=== PATIENT | male | born 1970 | race Caucasian/White ===

== ENCOUNTER 2020-10-08 09:10 | Outpatient (CLI) | payer OTHER ==
--- NOTE | 2020-10-08 11:44 | MRI Report ---
PROCEDURE: Shoulder RT W/O INDICATIONS: RT SHOULDER PAIN TECHNIQUE: Noncontrast oblique coronal T2 fast spin echo with fat saturation, oblique sagittal T1 spin echo and T2 fast spin echo with fat saturation, axial T1 spin echo and T2 fast spin echo with fat saturation t hrough the shoulder. COMPARISON: None. FINDINGS: Image quality: Excellent. Rotator cuff: Tendinosis and low to moderate grade articular and bursal surface partial-thickness tea r involving distal supraspinatus at its insertion on humeral head is seen extending to musculotendino us junction. There is suggestion of focal full-thickness perforation involving anterior fibers of dis ulices supraspinatus at its insertion on humeral head with up to 2.1 cm medial retraction of torn tendon fibers to the level of acromium and fluid-filled gap measures 7 mm in AP dimension. Tendinosis and l ow-grade articular surface partial-thickness tear involving distal infraspinatus is seen. Distal subs capularis tendinosis and low to moderate grade partial-thickness tear is also noted. Mild supraspinat us muscle atrophy is seen on sagittal images. Bones and bursae: No bone marrow contusions or fractures. There is mild to moderate acromioclavicula r joint osteoarthritis. The acromion demonstrates conventional anatomy, without an os acromiale. Smal l amount of joint fluid and subacromial subdeltoid bursal fluid is seen. Capsule and soft tissues: In the absence of intra-articular contrast, the labrum and glenohumeral li gaments appear intact. The long head of the biceps tendinosis and low-grade intrasubstance partial t hickness tear is seen. The rotator interval appears normal, without fibrosis. The coracohumeral lig ament is normal in thickness. IMPRESSION: 1. Tendinosis and low to moderate grade articular and bursal surface partial-thickness tear involving distal supraspinatus with focal full-thickness perforation involving anterior fibers of distal supra spinatus at its insertion on humeral head and up to 2.1 cm medial retraction of torn tendon fibers to the level of acromium. Mild supraspinatus muscle atrophy. 2. Tendinosis and low-grade articular surface partial-thickness tear involving distal infraspinatus. Tendinosis and low to moderate grade partial-thickness tear involving superior to mid fibers of dista l subscapularis. 3. [id number] acromioclavicular joint osteoarthritis. 4. No gross focal labral tear in the absence of intra-articular contrast. 5. Tendinosis and low-grade intrasubstance partial thickness tear involving proximal intra-articular portion of long head of biceps. Reviewed by: Keyur Cooper MD on 10/08/2020 10:43 AM [facility] Approved by: Keyur Cooper MD on 10/08/2020 10:43 AM [facility] Station ID: [id number]
== END 2020-10-08 09:11 | disposition home or self-care (01) ==
LOC: DI 09:10
PROVIDERS: ATTEND Student in an Organized Health Care Education/Training Program
DX: M19.011 Primary osteoarthritis, right shoulder (principal); M75.101 Unspecified rotator cuff tear or rupture of right shoulder, not specified as traumatic; S46.111A Strain of muscle, fascia and tendon of long head of biceps, right arm, initial encounter; M75.81 Other shoulder lesions, right shoulder

== ENCOUNTER 2021-02-05 06:30 | Day surgery (SDC) | payer OTHER ==
[~2021-02-05 06:30] MED LIST: CLINDAMYCIN 900 MG/50 ML 50 ML IV ONE; VANCOMYCIN INJ 1 GM, VANCOMYCIN INJ 250 MG in SODIUM CHLORIDE 0.9% 250 ML IV ONE
[2021-02-05] MEDS ORDERED: LACTATED RINGERS 1,000 ML IV ONE ×3 (06:36→13:19)
[2021-02-05] MEDS ORDERED: PROPOFOL 200 MG/20 ML VIAL IVP ONE (07:03)
[2021-02-05] MEDS ORDERED: ROCURONIUM 50 MG/5 ML VIAL ONE (07:03)
[2021-02-05] MEDS ORDERED: LIDOCAINE-MPF 2% 5 ML VIAL ONE (07:03)
[2021-02-05] MEDS ORDERED: MIDAZOLAM 2 MG/2 ML VIAL ONE (07:04)
[2021-02-05] MEDS ORDERED: ROPIVACAINE 0.5% PF 20 ML AMPULE ONE (07:04)
[2021-02-05] MEDS ORDERED: DEXAMETHASONE 4 MG/ML VIAL ONE (07:04)
[2021-02-05] MEDS ORDERED: fentaNYL 100 MCG/2 ML VIAL ONE ×2 (07:04→12:30)
[2021-02-05] MEDS ORDERED: EPINEPHrine 1 MG/ML AMP ONE (07:06)
[2021-02-05] MEDS ORDERED: BUPIVACAINE 0.25% PF 30 ML VIAL ONE (07:06)
[2021-02-05] MEDS ORDERED: SEVOFLURANE 250 ML LIQUID INH ONE ×2 (07:13→12:11)
--- NOTE | 2021-02-05 07:19 | ANESTHESIA ---
Pre-Anesthesia VS, & Labs - Diagnosis R biceps tear - Procedure R shoulder scope with possible SLAP, possible RCR, possib le biceps tenodesis Vital Signs: Temp Pulse Resp BP Pulse Ox 36.1 C L 98 12 141/88 H 97 02/05/21 06:36 02/05/21 06:36 02/05/21 06:36 02/05/21 06:36 02/05/21 06:36 Height: 5 ft 10 in Weight (kg): 83.46 kg Body Mass Index: 26.4 BMI Classification: Overweight - NPO >8 hours - Lab Results Lab results reviewed: Yes Home Medications and Allergies Home Medications: Ambulatory Orders Albuterol Sulfate [Proair Hfa Inhaler] 1 - 2 puffs INH Q4H PRN 02/01/21 Fluticasone/Salmeterol [Advair 250-50 Diskus] 1 each IH DAILY 02/01/21 Loratadine [Claritin] 10 mg PO DAILY 02/01/21 Pantoprazole [Protonix] 40 mg PO DAILY 02/01/21 Rosuvastatin Calcium [Crestor] 5 mg PO DAILY 02/01/21 Sildenafil Citrate [Viagra] 50 mg PO DAILY 02/01/21 Tamsulosin [Flomax] 0.4 mg PO DAILY 02/01/21 Ondansetron Odt [Zofran Odt] 4 mg TL Q6H PRN 02/05/21 Active Medications Vancomycin HCl 1 gm/Vancomycin HCl 250 mg/ Sodium Chloride 250 mls @ 167 mls/hr IV ONCE ONE Stop: 02/05/21 07:59 Last Admin: 02/05/21 07:00 Dose: 0 mls Documented by: Albuterol Sulfate [Proair Hfa Inhaler] 1 - 2 puffs INH Q4H PRN 02/01/21 Fluticasone/Salmeterol [Advair 250-50 Diskus] 1 each IH DAILY 02/01/21 Loratadine [Claritin] 10 mg PO DAILY 02/01/21 Pantoprazole [Protonix] 40 mg PO DAILY 02/01/21 Rosuvastatin Calcium [Crestor] 5 mg PO DAILY 02/01/21 Sildenafil Citrate [Viagra] 50 mg PO DAILY 02/01/21 Tamsulosin [Flomax] 0.4 mg PO DAILY 04/05/21 Ondansetron Odt [Zofran Odt] 4 mg TL Q6H PRN 02/05/21 Allergies/Adverse Reactions: Allergies Allergy/AdvReac Type Severity Reaction Status Date / Time Penicillins Allergy Respiratory Verified 02/01/21 14:18 Sulfa (Sulfonamide Allergy Rash Verified 02/01/21 14:18 Antibiotics) Anes History & Medical History - Anesthetic History Anesthesia Complications: reports: No previous complications Family history of Anesthesia Complications: Denies Family history of Malignant Hyperthermia: Denies - Medical History Cardiovascular: reports: High cholesterol Pulmonary: reports: Asthma, Sleep apnea Gastrointestinal: reports: GERD Urinary: reports: Benign prostate hypertrophy Musculoskeletal: reports: Other Endocrine/Autoimmune: reports: None Skin: reports: None History of Cancer?: No - Surgical History Dermatologic: reports: Debridement (R leg MRSA) Exam General: Alert, Oriented x3, Cooperative Dental: WNL Mouth Openin Fingerbreadth Neck Mobility: Normal Mallampati classification: II Thyromental Distance: 4-6 cm Respiratory: Lungs clear, Normal breath sounds, No respiratory distress Cardiovascular: Regular rate Mental/Cognitive Status: Alert/Oriented X3, Normal for patient Cognitive Status: Within normal limits Plan Anesthesia Type: General, Interscalene Block Consent for Procedure(s) Verified and Reviewed: Yes Code Status: Attempt Resuscitation ASA classification: 2-Mild systemic disease Is this case an emergency?: No
[2021-02-05] MEDS ORDERED: ATROPINE ABBOJECT 1 MG/10 ML SYRINGE IVP PRN (07:57)
[2021-02-05] MEDS ORDERED: MORPHINE 2 MG/ML CARPUJECT IVP PRN (07:57)
[2021-02-05] MEDS ORDERED: NALOXONE 0.4 MG/ML VIAL IVP PRN (07:57)
[2021-02-05] MEDS ORDERED: ONDANSETRON 4 MG/2 ML VIAL IVP PRN ×2 (07:57→13:21)
[2021-02-05] MEDS ORDERED: fentaNYL 100 MCG/2 ML VIAL IVP PRN (07:57)
[2021-02-05] MEDS ORDERED: ePHEDrine 50 MG/ML VIAL IVP PRN (07:57)
[2021-02-05] MEDS ORDERED: METOCLOPRAMIDE 10 MG/2 ML VIAL IVP PRN (07:57)
[2021-02-05] MEDS ORDERED: HYDROmorphone 0.5 MG/0.5 ML SYRINGE IVP PRN (07:57)
[2021-02-05] MEDS ORDERED: LACTATED RINGERS 1,000 ML IV SCH (08:00)
[2021-02-05] MEDS ORDERED: EPINEPHrine 1 MG/ML AMP IR ONE ×2 (08:29)
[2021-02-05] MEDS ORDERED: BUPIVACAINE 0.25% PF 30 ML VIAL SUBQ ONE ×2 (08:30→10:00)
[2021-02-05] MEDS ORDERED: ONDANSETRON 4 MG/2 ML VIAL ONE ×2 (10:33→14:22)
[2021-02-05] MEDS ORDERED: KETOROLAC 30 MG/ML VIAL ONE ×2 (10:33→11:27)
[2021-02-05] MEDS ORDERED: oxyCODONE 5 MG TABLET PO PRN (13:21)
--- NOTE | 2021-02-05 13:26 | OPERATIVE REPORT ---
Operative Report - General Planned Procedure: Right shoulder arthroscopy, rotator cuff debridement versus repair, open subpectoral biceps tenodesis Pre-Op Diagnosis: Right proximal long head biceps tendon rupture, rotator cuff tear Procedure Performed: Right shoulder arthroscopy, intra-articular debridement, subacromial decompression, rotator cuff repair, open biceps tenodesis Post Op Diagnosis: Right proximal long head biceps tendon rupture, anterior supraspinatus tear - Procedure Note Primary Surgeon: JAYLAN ANNE Anesthesia Technique: General ET tube, Regional block Estimated Blood Loss (mL): 50 - Other Other Information/Narrative: Primary Surgeon: JAYLAN ANNE Secondary Surgeon: Viktor Anesthesia: General endotracheal anesthesia EBL: 50 ml IMPLANTS: Arthrex 4.75 mm swivel lock x4 in speed bridge construct Arthrex 1.9 mm fiber tack POSTOPERATIVE PLAN: 0-2 weeks-Sling at all times. Pendulum exercises 5 times per day. 2-6 weeks-Passive range of motion with the following limits: FF to 120, ER to 40, abduction to 90. No active biceps engagement until 4 weeks. Then weight of arm only for ADLs. 6-12 weeks-Active range of motion in all planes without limitation. Isometric rotator cuff strengthening is allowed. 12-16 weeks-Gradually increase strengthening 16 weeks and beyond-Introduce dynamic activities EXAMINATION UNDER ANESTHESIA: ROM: Forward flexion 180 degrees, abduction 170 degrees, ABER 90 degrees, ABIR 85 degrees Anterior load and shift: Normal Posterior load and shift: Normal ARTHROSCOPIC FINDINGS: Rotator interval: Diffuse fraying. Frayed stump of biceps tendon sitting the rotator interval Biceps tendon & SLAP: Ruptured. With some fraying of the superior labrum Subscapularis: Superficial fraying, with some longitudinal fissuring, however the insertion appeared intact Rotator Cuff: Full-thickness anterior supraspinatus tear, with retraction. Labrum: Anterior, anterior inferior, posterior inferior fraying Glenoid Cartilage: Diffuse inferior fraying crabmeat changes Humeral Head Cartilage: Overall normal, with some eburnation superiorly near the rotator cuff tear INDICATIONFOR SURGERY: 50-year-old [id number] male sustained a spontaneous rupture of the proximal long head biceps tendon, while on detachment in [place], [place]. He desired operative intervention, with tenodesis to improve appearance and possibly function. We had previously discussed performing shoulder arthroscopy for a likely rotator cuff tear. We discussed proceeding with right shoulder arthroscopy, with rotator cuff debridement versus repair based on arthroscopic findings, as well as open biceps tenodesis. We discussed that because the tendon spontaneously ruptured more than a week ago, the dissection may be more extensive in order to locate the tendon appropriately. He expressed understanding. Risks, benefits, and alternatives were discussed. Risks included pain, bleeding, infection, damage to nearby structures, lack of symptom relief, implant complications, stiffness, need for further surgeries, DVT, PE, stroke, and even . He signed a written consent form. PROCEDURE IN DETAIL: The patient was met in the preoperative holding on the day of the procedure. Operative extremity was signed. Consent was verified. He desired to proceed. Regional anesthesia was obtained in the preoperative area. They were brought to the operating room and surrendered to anesthesia. Once general anesthesia was obtained they were placed in the lateral decubitus position with the operative side up. An axillary roll was placed and all bony prominences were well-padded. They were then prepped and draped in the standard sterile fashion. A surgical timeout was held to confirm the patient procedure, identity, procedure, laterality, allergies, images, and antibiotics. All were in agreement we proceeded. Balanced suspension was applied and a standard diagnostic arthroscopy was performed utilizing posterior and anterior superior portal sites. The anterior superior portal site was created under direct visualization. The findings of the diagnostic arthroscopy can be found above. The remnant biceps tendon was debrided back to the labral rim, using a combination of the arthroscopic sucker shaver and radiofrequency ablation wand. We next turned our attention to the full-thickness rotator cuff tear, an anterolateral portal was made under direct visualization, and the sucker shaver was brought in through the subacromial space, through the tear and used to debride the soft tissues off of the humeral head at the chondral margin. The instruments and cannula were then removed from the glenohumeral joint. The scope trocar was placed in the posterior portal and the acromion was felt. It was then inserted just under the acromion scraping along the bone until the CA ligament was felt. The scope trocar was then brought just lateral to the CA ligament and out the anterior incision. The cannula was then brought over the scope trocar arthroscope were inserted. The arthroscope was backed up until the shaver and arthroscope in the subacromial space. I then systemically debrided the bursa using a sucker shaver and radiofrequency ablation wand. Care was taken to keep the deltoid fascia intact. The tear in the leading edge of the supraspinatus was readily apparent. Degenerative cuff tissue was debrided using arthroscopic sucker shaver, and any remnant soft tissue was removed from the humeral head using the sucker shaver and arthroscopic rasp. A cuff grasper was used to reduce the tissue, and then the medial row of the speed bridge anchors were placed percutaneously through a stab incision following needle localizati on. The medial row of sutures was passed using the scorpion, and the anterior sutures brought out the anterior cannula posterior sutures brought out the posterior cannula. FiberWire scissors were used to separate the strands from each of the anchors, and then 1 blue and 1 white strand was brought anteriorly and posteriorly to the lateral row anchors. Lateral anchors were localized and placed in standard fashion using the punch, with good reduction of the cuff to the humeral head. Final pictures were taken. The cannulas and instruments were removed from the shoulder. We then turned our attention to the biceps tenodesis, a 8 cm incision was made lateral to the axillary fold centered over the pectoralis major tendon. Electrocautery was used to obtain hemostasis. The fascia was opened with dissection scissors. Blunt digital dissection was used to identify the intertubercular groove just under the pectoralis major tendon. The long head of the biceps tendon was not palpable in this location. Therefore the incision was extended approximately 2 more centimeters inferiorly, and Metzenbaum scissors were used to dissect through the fascia on the lateral edge of the short head muscle belly. There was some scar tissue appreciated, and this interval was explored, ultimately revealing the curled up and retracted tendon of the long head. This was then gently freed up from the surrounding tissue, any scar tissue was sharply debrided. The free edge of the tendon was clamped with a right angle, and we turned our attention to anchor placement. An [facility] retractor was placed underneath the edge of the pec tendon, exposing the intertubercular groove. The groove was systematically debrided of soft tissue using combination of electrocautery and a persaud elevator. Once this is been accomplished. The drill guide for the fiber tack was placed high in the groove, and a fiber tack suture anchor was placed in standard fashion. Traction on the suture indicated good fixation, with free sliding of the suture strands. One of the strands was used to whipstitch the biceps tendon from approximately 2 cm proximal to the musculotendinous junction down to the musculotendinous junct ion and then back again, and then the other limb was brought from deep to superficial through the biceps tendon at the 2 cm césar, to serve as a post. Excess tendon was sharply debrided. Under direct visualization, the post was tensioned, with good reduction of the tendon. While maintaining tension on the post, a series of reversing half hitches on alternating posts were used to secure the tendon to the anterior humerus. The elbow was taken through gentle range of motion, while palpating the tension on the tendon. The arm was able to get straight with appropriate tension on the tendon. The wound was then irrigated. We began our closure using 0 Vicryl to close the fascia, followed by 2-0 Vicryl for the subcutaneous tissues and followed by a running 3-0 Monocryl in subcuticular fashion for the skin. Sutures were held with Steri-Strips, and the incision was sealed with Dermabond. Once the Dermabond dried, Steri-Strips were placed over it to reinforce the repair. The portal sites were then closed with 3-0 Monocryl buried. Mastisol and Steri- Strips were applied. 10 mL of quarter percent Marcaine was injected around the biceps tenodesis incision. Xeroform was applied followed by a sterile dressing and a sling. He was awakened and transferred to the recovery room.
--- NOTE | 2021-02-05 13:29 | IMMEDIATE POSTOPERATIVE NOTE ---
Immediate Postoperative Note - Procedure Note Procedure Date: 02/05/21 Pre-Op Diagnosis: Right long head biceps tendon rupture, rotator cuff tear Procedure: Right shoulder arthroscopy, rotator cuff repair, subacromial decompression, biceps tenodesis Post-Op Diagnosis: Right long head biceps tendon rupture, supraspinatus tear Primary Surgeon: JAYLAN ANNE Anesthesia Type: General ET tube, Regional block Findings: Supraspinatus tear, torn biceps tendon.Tendon stump debrided in joint. Subpectoral tenodesis Estimated Blood Loss (in cc): 50 Drains, Catheters, Devices: None Plan of Care: Recovering same-day surgery, discharge home when criteria met. Start pendulum exercises postop day 1 as pain allows. Sling until follow-up. Dressings down postop day 3. He has been prescribed appropriate pain and nausea medication. DVT prophylaxis with early ambulation.
--- NOTE | 2021-02-05 14:00 | ANESTHESIA POST OP EVALUATION ---
Anesthesia Post Eval - Post Anesthesia Eval Vitals: Last Vital Signs Temp 36.5 C 02/05/21 13:35 Pulse 94 02/05/21 13:35 Resp 12 02/05/21 13:35 BP 124/76 02/05/21 13:35 Pulse Ox 100 02/05/21 13:35 CV Function Including HR & BP: Stable Pain Control: Satisfactory Nausea & Vomiting: Negative Mental Status: Baseline Respiratory Status: Airway Patent Hydration Status: Satisfactory Anesthesia Complications: None
[2021-02-05 14:43] VITALS: BP 116/72
== END 2021-02-05 06:31 | disposition home or self-care (01) ==
LOC: SDS 06:30
PROVIDERS: ATTEND Orthopaedic Surgery
DX: M75.121 Complete rotator cuff tear or rupture of right shoulder, not specified as traumatic (principal); M66.811 Spontaneous rupture of other tendons, right shoulder; M24.111 Other articular cartilage disorders, right shoulder; J45.909 Unspecified asthma, uncomplicated; G47.33 Obstructive sleep apnea (adult) (pediatric); I10 Essential (primary) hypertension; E78.00 Pure hypercholesterolemia, unspecified; K21.9 Gastro-esophageal reflux disease without esophagitis; N40.0 Benign prostatic hyperplasia without lower urinary tract symptoms; E66.3 Overweight; Z68.26 Body mass index [BMI] 26.0-26.9, adult; Z79.899 Other long term (current) drug therapy; Z79.51 Long term (current) use of inhaled steroids; Z86.14 Personal history of Methicillin resistant Staphylococcus aureus infection
CPT/HCPCS: 23430; 29827; C1713; J3370; J3490; J7120

== ENCOUNTER 2023-12-05 16:34 | Emergency (ER) | payer OTHER ==
[2023-12-05 17:07] LABS: BASOPHILS # (AUTO) 0.1 10^3/uL (0.0-0.1); BASOPHILS % (AUTO) 0.3 %; EOSINOPHILS # (AUTO) 0.1 10^3/uL (0.0-0.7); EOSINOPHILS % (AUTO) 0.9 %; HCT - HEMATOCRIT 46.7 % (42.0-52.0); HGB - HEMOGLOBIN 15.1 g/dL (14.0-18.0); LYMPHOCYTES # (AUTO) 1.7 10^3/uL (1.5-3.5); LYMPHOCYTES % (AUTO) 11.4 %; MEAN CORPUSCULAR HEMOGLOBIN 27.7 pg (27.0-31.0); MEAN CORPUSCULAR HGB CONC 32.3 g/dL (32.0-36.0); MEAN CORPUSCULAR VOLUME 85.7 fL (80.0-94.0); MEAN PLATELET VOLUME 9.3 fL (7.4-11.4); MONOCYTES # (AUTO) 0.9 10^3/uL (0.0-1.0); NEUTROPHILS % (AUTO) 80.9 %; PLT - PLATELET COUNT 320 10^3/uL (130-450); RED BLOOD COUNT 5.45 10^6/uL (4.70-6.10); RED CELL DISTRIBUTION WIDTH 12.7 % (12.0-15.0); WHITE BLOOD COUNT 14.8 x10^3/uL (4.8-10.8)
[2023-12-05 17:14] LABS: BILIRUBIN,URINE NEGATIVE (NEGATIVE); GLUCOSE, URINE (UA) NEGATIVE (NEGATIVE); KETONES,URINE (UA) TRACE mg/dL (NEGATIVE); LEUKOCYTE ESTERASE, URINE NEGATIVE (NEGATIVE); NITRITE,URINE NEGATIVE (NEGATIVE); OCCULT BLOOD,URINE SMALL (NEGATIVE); PROTEIN,URINE 30 mg/dL (NEGATIVE); UROBILINOGEN,URINE 0.2 (NORMAL) E.U./dL (NORMAL)
[2023-12-05 17:15] LABS: CLARITY,URINE HAZY (CLEAR)
--- NOTE | 2023-12-05 17:17 | ED Physician Documentation ---
PD HPI ABD PAIN - Stated complaint Stated Complaint: ABD PX - Chief complaint Chief Complaint: Abd Pain - History obtained from History obtained from: Patient - History of Present Illness Timing - onset: Today Timing - duration: Days (1) Timing - details: Abrupt onset Pain level max: 8 Pain level now: 8 Quality: Aching, Pain Location: LLQ Radiation: No: Chest, , Lower back, Left flank, Left shoulder, Right flank, Right shoulder, Upper back Improved by: Laying still Worsened by: Moving, Palpation Associated symptoms: Nausea. No: Fever, Vomiting, Hematemesis, Diarrhea, Constipation, Melena, Hematochezia, Dysuria, Hematuria Similar symptoms before: Has not had sx before - Additional information Additional information: states normal colonoscopy last year with diverticulosis present. Review of Systems Constitutional: denies: Fever, Chills Cardiac: denies: Chest pain / pressure, Palpitations Respiratory: denies: Dyspnea, Cough GI: denies: Vomiting, Diarrhea Skin: denies: Rash Musculoskeletal: denies: Neck pain, Back pain Neurologic: denies: Headache PD PAST MEDICAL HISTORY - Past Medical History Past Medical History: Yes Cardiovascular: High cholesterol Respiratory: Asthma, Sleep apnea Endocrine/Autoimmune: None GI: GERD : Benign prostate hypertrophy HEENT: None Psych: None Musculoskeletal: Osteoarthritis, Other Derm: None - Past Surgical History Past Surgical History: Yes Ortho: Rotator cuff repair Derm: Debridement - Present Medications Home Medications: Ambulatory Orders Medication Instructions Recorded Confirmed Albuterol Sulfate [Proair Hfa 1 - 2 puffs INH Q4H PRN 02/01/21 12/05/23 Inhaler] Fluticasone/Salmeterol [Advair 1 each IH DAILY 02/01/21 12/05/23 250-50 Diskus] Rosuvastatin Calcium [Crestor] 40 mg PO DAILY 02/01/21 12/05/23 Sildenafil Citrate [Viagra] 50 mg PO DAILY PRN 02/01/21 12/05/23 Tamsulosin [Flomax] 0.4 mg PO DAILY 02/01/21 12/05/23 Ibuprofen [Motrin] 800 mg PO Q8H PRN #30 tablet 12/05/23 Ondansetron Odt [Zofran] 4 mg TL Q6H PRN #10 tablet 12/05/23 Oxycodone HCl/Acetaminophen 1 - 2 each PO Q6H PRN #20 tablet 12/05/23 [Percocet 5-325 mg Tablet] MDD 6 tabs Pantoprazole [Protonix] 40 mg PO DAILY 12/05/23 12/05/23 - Allergies Allergies/Adverse Reactions: Allergies Allergy/AdvReac Type Severity Reaction Status Date / Time Penicillins Allergy Respiratory Verified 12/05/23 16:43 Sulfa (Sulfonamide Allergy Rash Verified 12/05/23 16:43 Antibiotics) - Social History Does the pt smoke?: No Smoking Status: Never smoker Does the pt drink ETOH?: Yes Does the pt have substance abuse?: No - Immunizations Immunizations are current?: Yes - POLST Patient has POLST: No PD ED PE NORMAL - Vitals Vital signs reviewed: Yes - General General: Alert and oriented X 3, No acute distress - HEENT HEENT: PERRL, Moist mucous membranes - Neck Neck: Supple, no meningeal sign - Cardiac Cardiac: RRR, Strong equal pulses - Respiratory Respiratory: No respiratory distress, Clear bilaterally - Abdomen Abdomen: Soft, Non distended, Other (TTP LLQ, no peritoneal signs. ) - Back Back: No CVA TTP, No spinal TTP - Derm Derm: Warm and dry - Neuro Neuro: Alert and oriented X 3 - Psych Psych: Normal mood, Normal affect Results - Vitals Vitals: Vital Signs - 24 hr 12/05/23 12/05/23 12/05/23 16:43 17:30 17:43 Temperature 36 C L 36.3 C L Heart Rate 60 70 Respiratory 20 20 Rate Blood Pressure 142/85 H 162/86 H 123/96 H O2 Saturation 100 100 100 12/05/23 12/05/23 18:39 19:32 Temperature 36.4 C L Heart Rate 53 L 62 Respiratory 18 16 Rate Blood Pressure 145/87 H 137/86 H O2 Saturation 100 98 Oxygen O2 Source Room air - Labs Labs: Laboratory Tests 12/05/23 12/05/23 12/05/23 17:00 17:00 17:00 WBC 14.8 H RBC 5.45 Hgb 15.1 Hct 46.7 MCV 85.7 MCH 27.7 MCHC 32.3 RDW 12.7 Plt Count 320 MPV 9.3 Neut # (Auto) 12.0 H Lymph # (Auto) 1.7 Cross # (Auto) 0.9 Eos # (Auto) 0.1 Baso # (Auto) 0.1 Absolute Nucleated RBC 0.00 Nucleated RBC % 0.0 Sodium 138 Potassium 4.1 Chloride 105 Carbon Dioxide 23 Anion Gap 10.0 BUN 24 H Creatinine 1.3 Estimated GFR (MDRD) 58 L Glucose 143 H Calcium 10.4 H Total Bilirubin 0.7 AST 32 ALT 41 Alkaline Phosphatase 78 Total Protein 7.8 Albumin 4.8 Globulin 3.0 Albumin/Globulin Ratio 1.6 Lipase 21 Urine Color YELLOW Urine Clarity HAZY Urine pH 8.0 H Ur Specific [place] 1.015 Urine Protein 30 H Urine Glucose (UA) NEGATIVE Urine Ketones TRACE Urine Occult Blood SMALL H Urine Nitrite NEGATIVE Urine Bilirubin NEGATIVE Urine Urobilinogen 0.2 (NORMAL) Ur Leukocyte Esterase NEGATIVE Urine RBC 11-25 H Urine WBC 4-5 Ur Squamous Epith Cells NONE SEEN Amorphous Sediment Moderate Urine Bacteria Few Ur Microscopic Review INDICATED Urine Culture Comments NOT INDICATED - Rads (name of study) CT abd/pelvis Relevant Findings:: Final report received, See rad report PD Medical Decision Making - ED course Complexity details: reviewed results, re-evaluated patient, considered differential, d/w patient ED course: 53-year-old male presents the emergency department with left-sided abdominal pain. Found to have a 7 mm left-sided ureteral stone. No evidence of UTI. No fevers. No evidence of sepsis. Pain well-controlled in the emergency department with Toradol, IV lidocaine and morphine. Tolerating p.o. without difficulty. Given IV normal saline. We will place the patient on pain medication for home. He already takes Flomax. We will have the patient follow- up with urology for further care in case the stone does not pass. Patient counseled regarding signs and symptoms for which I believe and urgent re- evaluation would be necessary. Patient with good understanding of and agreement to plan and is comfortable going home at this time This document was made in part using voice recognition software. While efforts are made to proofread this document, sound alike and grammatical errors may occur. Departure - Departure Disposition: 01 Home, Self Care Clinical Impression: Ureteral calculus, left Condition: Good Instructions: ED Stone Renal W Colic Follow-Up: Dawit Stauffer MD [Provider Admit Priv/Credential] - Prescriptions: Ibuprofen [Motrin] 800 mg PO Q8H PRN #30 tablet PRN Reason: PAIN &/OR FEVER Oxycodone HCl/Acetaminophen [Percocet 5-325 mg Tablet] 1 - 2 each PO Q6H PRN #20 tablet MDD 6 tabs PRN Reason: pain Ondansetron Odt [Zofran] 4 mg TL Q6H PRN #10 tablet PRN Reason: Nausea / Vomiting Comments: You have a 7 mm stone in your left ureter. This may pass on its own but may need removal by a urologist. Dr. Stauffer is the local urologist. You can contact his office tomorrow for a follow-up appointment. Make sure you are drinking plenty of fluids at home. We have prescribed a pain medication called Percocet, an anti-inflammatory medication Motrin which will help to stop the squeezing of the ureter and is often very useful for pain, as well as Flomax which helps to dilate the ureter and pass the stone. Please return if you develop worsening pain, fevers or other new or worrisome symptoms. Your prescriptions are sent to [facility] in [place]. I am prescribing a short course of narcotic pain medication for you. These are potentially dangerous and addictive medications that should be used carefully. These medications may constipate you. Take an crzh-ubv-dhfjoki stool softener (docusate) twice daily with plenty of water while taking these medications. If you go 24 hours without a bowel movement, take tggj-nli-jydblnc miralax, per package instructions. Do not drink or drive while taking these medications. If you received narcotic or sedating medications while in the emergency department, do not drive for 24 hours. Store this medication in a safe, secure place and out of reach of children. It is a violation of federal law to give or sell this medication to another person or to use in a manner other than prescribed. The ED will not refill narcotic prescriptions, including prescriptions lost or stolen. To dispose of unwanted medications: 1. [facility] at [address] in [place] has a medication drop box. They accept prescription medications (in pill form) Monday through Monday 9:00 a.m. to 5:00 p.m. 2. The [facility] [employer] accepts prescription medications (in pill form only) for disposal year round. Call for more information. 3. Contact the [facility] for the next [facility] sponsored prescription drug collection event. , [phone], or [phone]; PROCEDURE: Abdomen/Pelvis W INDICATIONS: LLQ abd pain CONTRAST: 100mL Omni 300 TECHNIQUE: After the administration of intravenous contrast, a CT scan of the abdomen and pelvis was performed. Images were recorded and evaluated at appropriate window settings. Reformats: coronal and sagittal. For radiation dose reduction, the following was used: automated exposure control, adjustment of mA and/or kV according to patient size. COMPARISON: None. FINDINGS: Image quality: Diagnostic. Lower chest: There is a moderate hiatal hernia. Liver: No solid mass. Diffuse fatty liver infiltration can be seen. Gallbladder and biliary tree: Within normal limits. Spleen: No splenomegaly. Pancreas: No pancreatic ductal dilation. Adrenals: No adrenal nodule. Kidneys and ureters: There is an obstructing stone seen within the left mid ureter, as seen on series 2 image 84 and on series 4 image 74, measuring 17 mm craniocaudal. There is associated left- sided hydroureter and hydronephrosis, with perinephric fat stranding. There is a nonobstructing kidney stones are seen. The right kidney demonstrates no hydronephrosis. The kidneys demonstrate normal size. There is a mild delayed nephrogram seen on the left. Stomach, bowel and peritoneum: No bowel distension. No pathologic free fluid. Diverticulosis can be seen, without terrell findings of active diverticulitis. A normal appendix is seen. Lymph nodes: No central or retroperitoneal adenopathy. Vessels: No infrarenal aortic aneurysm. PELVIS Reproductive organs: Unremarkable. Bladder: No abnormal wall thickening, accounting for underdistention. Pelvic lymph nodes: No pelvic adenopathy by size criteria. Bones: No aggressive osseous abnormality. Degenerative changes are seen throughout, particularly involving both hips bilateral degenerative change. Other: No significant ventral or inguinal hernia. IMPRESSION: 7 mm obstructing stone within the left mid ureter, with associated left-sided hydroureter, hydronephrosis, perinephric fat stranding, and a delayed nephrogram. Additional findings: Moderate hiatal hernia Fatty liver infiltration Diverticulosis, without findings of active diverticulitis. Normal appendix Forms: PCP List Discharge Date/Time: 12/05/23 19:43
[2023-12-05] MEDS: SODIUM CHLORIDE 0.9% 1,000 ML IV STA (17:24)
[2023-12-05 17:27] LABS: ALBUMIN 4.8 g/dL (3.2-5.5); ALBUMIN/GLOBULIN RATIO 1.6 (1.0-2.2); BILIRUBIN,TOTAL 0.7 mg/dL (0.2-1.0); CALCIUM 10.4 mg/dL (8.5-10.3); CREATININE 1.3 mg/dL (0.6-1.3); POTASSIUM 4.1 mmol/L (3.5-4.5); TOTAL PROTEIN 7.8 g/dL (6.4-8.9)
[2023-12-05 17:28] LABS: SQUAMOUS EPITHELIAL CELL,UR NONE SEEN (<= Few)
[2023-12-05 17:29] LABS: AMORPHOUS SEDIMENT,UR Moderate /LPF; BACTERIA,URINE Few /HPF (None Seen)
[2023-12-05] MEDS: ONDANSETRON 4 MG/2 ML VIAL IVP STA (17:33)
[2023-12-05] MEDS: MORPHINE 2 MG/ML CARPUJECT IVP STA (17:35)
[2023-12-05] MEDS ORDERED: iohexoL-300 100 ML VIAL ONE (17:37)
[2023-12-05] MEDS: KETOROLAC 30 MG/ML VIAL IVP STA (18:33)
[2023-12-05] MEDS: LIDOCAINE-MPF 2% 6 ML in SODIUM CHLORIDE 0.9% 50 ML IV STA (18:35)
[2023-12-05] MEDS: iohexoL-300 100 ML VIAL IVP ONE (18:56)
--- NOTE | 2023-12-05 18:58 | CT Report ---
PROCEDURE: Abdomen/Pelvis W INDICATIONS: LLQ abd pain CONTRAST: 100mL Omni 300 TECHNIQUE: After the administration of intravenous contrast, a CT scan of the abdomen and pelvis was performed. Images were recorded and evaluated at appropriate window settings. Reformats: coronal and sagittal. F or radiation dose reduction, the following was used: automated exposure control, adjustment of mA and /or kV according to patient size. COMPARISON: None. FINDINGS: Image quality: Diagnostic. Lower chest: There is a moderate hiatal hernia. Liver: No solid mass. Diffuse fatty liver infiltration can be seen. Gallbladder and biliary tree: Within normal limits. Spleen: No splenomegaly. Pancreas: No pancreatic ductal dilation. Adrenals: No adrenal nodule. Kidneys and ureters: There is an obstructing stone seen within the left mid ureter, as seen on series 2 image 84 and on series 4 image 74, measuring 17 mm craniocaudal. There is associated left-sided hy droureter and hydronephrosis, with perinephric fat stranding. There is a nonobstructing kidney stones are seen. The right kidney demonstrates no hydronephrosis. The kidneys demonstrate normal size. Ther e is a mild delayed nephrogram seen on the left. Stomach, bowel and peritoneum: No bowel distension. No pathologic free fluid. Diverticulosis can be s een, without terrell findings of active diverticulitis. A normal appendix is seen. Lymph nodes: No central or retroperitoneal adenopathy. Vessels: No infrarenal aortic aneurysm. PELVIS Reproductive organs: Unremarkable. Bladder: No abnormal wall thickening, accounting for underdistention. Pelvic lymph nodes: No pelvic adenopathy by size criteria. Bones: No aggressive osseous abnormality. Degenerative changes are seen throughout, particularly invo lving both hips bilateral degenerative change. Other: No significant ventral or inguinal hernia. IMPRESSION: 7 mm obstructing stone within the left mid ureter, with associated left-sided hydroureter, hydronephr osis, perinephric fat stranding, and a delayed nephrogram. Additional findings: Moderate hiatal hernia Fatty liver infiltration Diverticulosis, without findings of active diverticulitis. Normal appendix Reviewed by: Jamal Putnam MD on 12/05/2023 5:57 PM AKST Approved by: Jamal Putnam MD on 12/05/2023 5:57 PM AKST Station ID: [id number]
[2023-12-05 19:42] VITALS: BP 137/86; O2SAT 98
== END 2023-12-05 19:43 | disposition home or self-care (01) ==
LOC: ED 16:34
DX: N20.1 Calculus of ureter (principal)
CPT/HCPCS: 36415; 74177; 80053; 81001; 83690; 85025; 96365; 96375; 99283; 99284; J7040; Q9967; 81003; 87086

== ENCOUNTER 2023-12-18 10:52 | Day surgery (SDC) | payer OTHER ==
[~2023-12-18 10:52] MED LIST changes: -CLINDAMYCIN 900 MG/50 ML 50 ML IV ONE; -VANCOMYCIN INJ 1 GM, VANCOMYCIN INJ 250 MG in SODIUM CHLORIDE 0.9% 250 ML IV ONE; +ceFAZolin 2 GM VIAL ONE
[2023-12-18] MEDS: LACTATED RINGERS 1,000 ML IV ONE ×2 (11:48→15:08)
[2023-12-18] MEDS ORDERED: LIDOCAINE 2% URO-JET 5 ML SYRINGE UR ONE ×2 (13:00→14:55)
[2023-12-18] MEDS ORDERED: iohexoL-240 10 ML VIAL IVP ONE ×2 (13:00→14:09)
[2023-12-18] MEDS ORDERED: LIDOCAINE JELLY 2% 6 ML JEL.PF.APP ONE ×2 (13:00→14:08)
[2023-12-18] MEDS ORDERED: MIDAZOLAM 2 MG/2 ML VIAL ONE (14:00)
[2023-12-18] MEDS ORDERED: fentaNYL 100 MCG/2 ML VIAL ONE ×2 (14:01→14:37)
[2023-12-18] MEDS ORDERED: LIDOCAINE-PF 2% 10 ML AMP SUBQ ONE (14:01)
[2023-12-18] MEDS ORDERED: PROPOFOL 200 MG/20 ML VIAL IVP ONE (14:01)
[2023-12-18] MEDS ORDERED: ONDANSETRON 4 MG/2 ML VIAL ONE (14:01)
[2023-12-18] MEDS: iohexoL-240 10 ML VIAL IVP ONE (14:25)
[2023-12-18] MEDS: LIDOCAINE JELLY 2% 6 ML JEL.PF.APP UR ONE (14:25)
[2023-12-18] MEDS ORDERED: KETOROLAC 30 MG/ML VIAL ONE (14:33)
[2023-12-18] MEDS ORDERED: ONDANSETRON 4 MG/2 ML VIAL IVP PRN ×2 (15:12→15:22)
[2023-12-18] MEDS ORDERED: HYDROcod/ACETAM 5/325 MG TABLET PO PRN (15:12)
--- NOTE | 2023-12-18 15:21 | Discharge Plan ---
Discharge Plan Problem Reviewed?: Yes Disposition: Home, Self Care Condition: Good Prescriptions: Docusate Sodium 100Mg Capsule [Colace 100Mg Capsule] 100 mg PO DAILY #7 cap HYDROcod/ACETAM 5/325 [Largo 5/325] 1 tab PO Q4H PRN #10 tablet PRN Reason: Pain Diet: Regular Activity Restrictions: No Restrictions Shower Restrictions: No Driving Restrictions: No Instruction Topics: Stents Ureteral Additional Instructions or Follow Up instructions: You will be contacted for followup in 3 months with a renal ultrasound No Smoking: If you smoke, Please STOP! Call for help. Follow-up with: Dawit Stauffer MD [Provider Admit Priv/Credential] -
[2023-12-18] MEDS ORDERED: MORPHINE 2 MG/ML CARPUJECT IVP PRN (15:22)
[2023-12-18] MEDS ORDERED: HYDROmorphone 0.5 MG/0.5 ML SYRINGE IVP PRN (15:22)
[2023-12-18] MEDS ORDERED: METOCLOPRAMIDE 10 MG/2 ML VIAL IVP PRN (15:22)
[2023-12-18] MEDS ORDERED: NALOXONE 0.4 MG/ML VIAL IVP PRN (15:22)
[2023-12-18] MEDS ORDERED: fentaNYL 100 MCG/2 ML VIAL IVP PRN (15:22)
[2023-12-18] MEDS ORDERED: ePHEDrine 50 MG/ML VIAL IVP PRN (15:22)
[2023-12-18] MEDS ORDERED: ATROPINE ABBOJECT 1 MG/10 ML SYRINGE IVP PRN (15:22)
--- NOTE | 2023-12-18 15:24 | ANESTHESIA POST OP EVALUATION ---
Anesthesia Post Eval - Post Anesthesia Eval Vitals: Last Vital Signs Temp 36.2 C L 12/18/23 15:20 Pulse 71 12/18/23 15:20 Resp 15 12/18/23 15:20 BP 122/93 H 12/18/23 15:20 Pulse Ox 99 12/18/23 15:20 O2 Flow Rate CV Function Including HR & BP: Stable Pain Control: Satisfactory Nausea & Vomiting: Negative Mental Status: Baseline Respiratory Status: Airway Patent Hydration Status: Satisfactory Anesthesia Complications: None
--- NOTE | 2023-12-18 15:24 | OPERATIVE REPORT ---
Operative Report - General Procedure Date: 12/18/23 Planned Procedure: Cystoscopy, left ureteroscopy, laser lithotripsy and stent Pre-Op Diagnosis: Left ureteral stone Procedure Performed: Cystoscopy, left ureteroscopy, ureteral dilation, laser lithotripsy, retrograde pyelogram and stent Post Op Diagnosis: Left ureteral stone - Procedure Note Primary Surgeon: Eh Anesthesia Provider: BOB Simons Anesthesia Technique: General LMA Pathology: left ureteral stone Estimated Blood Loss (mL): 1 Findings: Left mid ureteral stone, retrograde pushed back into kidney Complications: none - Other Other Information/Narrative: After informed consent was obtained the patient was brought to the OR and laid in the supine position. The patient was anesthetized per anesthesia protocols a nd prepped and draped in usual sterile fashion in the dorsolithotomy position. A formal timeout was performed reconfirming the patient, procedure and laterality. A 22 Uzbek cystoscope was advanced into urinary bladder, there were no masses lesions or other concerns. Attention was paid to his left side ureteral orifice where a sensor wire was used to cannulate it and a 5 Uzbek catheter was advanced into the distal ureter. [employer] imaging showed no obvious radiopacities. A gentle retrograde pyelogram showed a radiolucency at the expected area of the mid ureter where his stone was. It also appeared that the stone blew backwards into his kidney. A sensor wire was placed up into the kidney. We attempted to pass a flexible ureteroscope over the wire but the UVJ was quite narrow. We then dilated with an 8/10 dilator. The flexible ureteroscope was then advanced up into the kidney. There we saw a 3 mm stone attached to the left renal papilla in the mid/lower pole which was lasered to dust. A larger stone about 5 mm x 3 mm which was yellow and crystalline was identified. This was broken up into 2 pieces using a 200 m laser fiber at a power of 0.8 and a rate of 8. We then used a basket to grab the stone pieces and remove them for analysis. No other stones were seen in the kidney or the ureter. A 6 Uzbek 26 cm double-J ureteral stent was placed with good curling noted in the kidney and good curling noted in the bladder. A Uro-Jet was placed. The string on the stent was taped using a Tegaderm to his penis. The patient was reversed of anesthesia and brought to the PACU without further incident. The stent will be removed by himself in 3 days and he will follow-up in 3 months time
--- NOTE | 2023-12-18 15:24 | ANESTHESIA ---
Pre-Anesthesia VS, & Labs - Diagnosis L kidney stone - Procedure L cystoscopy, ureteroscopy, laser lithotripsy, stent placement Vital Signs: Temp Pulse Resp BP Pulse Ox O2 Flow Rate 36.4 C L 78 15 137/84 H 99 12/18/23 15:15 12/18/23 15:15 12/18/23 15:15 12/18/23 15:15 12/18/23 15:15 Height: 5 ft 9.5 in Weight (kg): 79 kg Body Mass Index: 25.3 BMI Classification: Overweight - NPO >8 hours Home Medications and Allergies Active Medications Hydrocodone Bitart/Acetaminophen (Hydrocod/Acetam 5/325 Mg Tablet) 1 tab PO Q4HR PRN PRN Reason: Moderate Pain (Level 4-6) Ondansetron HCl (Ondansetron 4 Mg/2 Ml Vial) 4 mg IVP Q6HR PRN PRN Reason: Nausea / Vomiting Albuterol Sulfate [Proair Hfa Inhaler] 1 - 2 puffs INH Q4H PRN 02/01/21 Fluticasone/Salmeterol [Advair 250-50 Diskus] 1 each IH DAILY 02/01/21 Rosuvastatin Calcium [Crestor] 40 mg PO DAILY 02/01/21 Sildenafil Citrate [Viagra] 50 mg PO DAILY PRN 02/01/21 Tamsulosin [Flomax] 0.4 mg PO DAILY 02/01/21 Pantoprazole [Protonix] 40 mg PO DAILY 12/05/23 Allergies/Adverse Reactions: Allergies Allergy/AdvReac Type Severity Reaction Status Date / Time Penicillins Allergy Respiratory Verified 12/15/23 13:31 Sulfa (Sulfonamide Allergy Rash Verified 12/15/23 13:31 Antibiotics) Anes History & Medical History - Anesthetic History Anesthesia Complications: reports: No previous complications Family history of Anesthesia Complications: Denies Family history of Malignant Hyperthermia: Denies - Medical History Cardiovascular: reports: High cholesterol, Arrhythmia Pulmonary: reports: Asthma Gastrointestinal: reports: GERD, Hiatal hernia, Colon polyps Urinary: reports: Kidney stones Musculoskeletal: reports: Osteoarthritis Endocrine/Autoimmune: reports: None Skin: reports: Eczema Smoking Status: Never smoker Psychosocial: reports: No issues indicated History of Cancer?: No - Surgical History General: reports: Colonoscopy, EGD Urologic: reports: Testicular surgery Orthopedic: reports: Rotator cuff repair Dermatologic: reports: Debridement Exam General: Alert, Oriented x3, Cooperative Dental: WNL Mouth Openin Fingerbreadth Neck Mobility: Normal Mallampati classification: II Thyromental Distance: 4-6 cm Respiratory: Lungs clear Cardiovascular: Regular rate Plan Anesthesia Type: General Consent for Procedure(s) Verified and Reviewed: Yes Code Status: Attempt Resuscitation ASA classification: 2-Mild systemic disease Is this case an emergency?: No
[2023-12-18 15:54] VITALS: BP 129/85; O2SAT 99
[2023-12-18] MEDS ORDERED: LACTATED RINGERS 1,000 ML IV SCH (16:00)
[2023-12-18] MEDS: HYDROcod/ACETAM 5/325 MG TABLET ONE (16:08)
--- NOTE | 2023-12-19 17:34 | XRAY Report ---
PROCEDURE: OR C-Arm Procedure INDICATIONS: Cysto FLUORO TIME: 0.4 min TECHNIQUE: Single intraoperative fluoroscopic image. COMPARISON: None. FINDINGS: Single intraoperative fluoroscopic image demonstrates bowel loop. There is no visualized contrast. Vi sualized portions of the ribs are unremarkable. IMPRESSION: Single intraoperative image as above. Recommend correlation to operative report. Reviewed by: Lupe Dominguez MD on 12/19/2023 5:32 PM PST Approved by: Lupe Dominguez MD on 12/19/2023 5:32 PM PST Station ID: [id number]
[2023-12-25 18:07] LABS: CALCIUM OXALATE DIHYDRATE 90 % (.); CALCIUM OXALATE MONOHYDRATE 10 % (.); STONE COLOR Tan (.); STONE SIZE 4x3 mm (.); STONE WEIGHT 26 mg (.)
== END 2023-12-18 10:53 | disposition home or self-care (01) ==
LOC: SDS 10:52
PROVIDERS: ATTEND Urology
DX: N20.1 Calculus of ureter (principal)
CPT/HCPCS: 52356; 82365; A9270; C1758; C2617; J7120; Q9966

== ENCOUNTER 2024-03-29 19:11 | Outpatient (CLI) | payer OTHER ==
--- NOTE | 2024-03-31 10:31 | Ultrasound Report ---
PROCEDURE: Renal (Retroperitoneal) INDICATIONS: URETERAL STONE W HYDRONEPHROSIS TECHNIQUE: Real-time scanning was performed of the retroperitoneal organs, with image documentation. COMPARISON: CT abdomen/pelvis 12/05/2023 FINDINGS: Kidneys: Kidneys are normal in size. Right kidney measures 12.2 cm long; left kidney measures 12.3 cm long. Right renal cortical thickness is 1.7 cm; left renal cortical thickness is 1.4 cm. Minimal left hydronephrosis versus extrarenal pelvis. No solid masses or nephrolithiasis. Bladder: Pre-void bladder volume is 482 mL. Post-void residual is 122 mL. Pre-void images demonstr ate no intraluminal masses or stones. On pre-void images, bilateral ureteral jets are noted with col or Doppler interrogation. (Of note, ureteral jets may not be detectable in up to 25% of cases due to insufficient differences in specific gravity between ureteral and bladder urine). Miscellaneous: No free abdominal fluid. Prostate measures 4.4 x 3.3 x 3.6 cm with IMPRESSION: 1.Minimal left hydronephrosis versus extrarenal pelvis, significantly decreased when compared to the CT from 12/05/2023. 2.Post void residual bladder volume is 122 mL. Reviewed by: Edgard Armando MD on 03/31/2024 10:29 AM PDT Approved by: Edgard Armando MD on 03/31/2024 10:29 AM PDT Station ID: [id number]
== END 2024-03-29 19:12 | disposition home or self-care (01) ==
LOC: DI 19:11
PROVIDERS: ATTEND Urology
DX: N13.2 Hydronephrosis with renal and ureteral calculous obstruction (principal)